=== PATIENT | female | born 1985 | race Two or more races ===

== ENCOUNTER 2020-12-20 10:30 | Inpatient (IN) | payer OTHER ==
[~2020-12-20] VITALS: Ht 152.4 cm; Wt 3.2 kg
[2020-12-20] MEDS ORDERED: FOLIC A PO (12:46)
[2020-12-20] MEDS ORDERED: OBTREX DHA COM1 EACH PO (12:46)
[2020-12-20] MEDS ORDERED: SYNTHROID175 MCG PO (12:46)
[2020-12-27] MEDS ORDERED: FOLIC ACID0.8 M1 PO (13:24)
== END 2020-12-30 15:03 | disposition home or self-care (01) | DRG 788 ==
LOC: OB/GYN 12-27 07:00 → O/R 12-27 09:58 → OB/GYN 12-27 10:30 → SURG-SUITE 12-27 15:38
PROVIDERS: ADMIT Obstetrics & Gynecology; ATTEND Obstetrics & Gynecology
PROC: 4A1HXFZ Monitoring of Products of Conception, Cardiac Rhythm, External Approach (ICD-10-PCS; 2020-12-27)
PROC: 10D00Z1 Extraction of Products of Conception, Low, Open Approach (ICD-10-PCS; principal; 2020-12-27 07:00)
DX: O34.211 Maternal care for low transverse scar from previous cesarean delivery (principal); O99.284 Endocrine, nutritional and metabolic diseases complicating childbirth; E03.9 Hypothyroidism, unspecified; Z37.0 Single live birth; Z3A.39 39 weeks gestation of pregnancy

== ENCOUNTER 2024-04-26 16:01 | Outpatient (CLI) | payer OTHER ==
[~2024-04-26 16:01] MED LIST: FOLIC A PO; FOLIC ACID0.8 M1 PO; OBTREX DHA COM1 EACH PO; SYNTHROID175 MCG PO
== END 2024-04-26 16:17 | disposition home or self-care (01) ==
LOC: NST 16:01
PROVIDERS: ATTEND Obstetrics & Gynecology Gynecology
DX: Z34.83 Encounter for supervision of other normal pregnancy, third trimester (principal)

== ENCOUNTER 2024-04-29 10:36 | Inpatient (IN) | payer OTHER ==
[~2024-04-29] VITALS: Ht 152.4 cm; Wt 3.6 kg
[~2024-04-29 10:36] MED LIST changes: +GLUMETZA500 MG PO
[2024-04-29 11:14] LABS: PH,URINE 6.5 (5.0-8.0); URINE APPEARANCE Clear; URINE BILIRRUBIN Negative (NEGATIVE); URINE BLOOD Negative; URINE COLOR Yellow; URINE GLUCOSE Negative (NEGATIVE); URINE KETONE Negative (NEGATIVE); URINE LEUKOCYTE Negative; URINE NITRATE Negative; URINE PROTEIN Negative (NEGATIVE); URINE UROBILINOGEN 0.2 E.U./dl
[2024-04-29 11:15] LABS: URINE BACTERIA 1324.1 uL (0.0-1933); URINE EPITHELIAL CELLS 12.4 uL (0.0-38.8); URINE RBC 3.9 uL (0.0-20.8); URINE WBC 21.3 uL (0.0-23.2)
[2024-04-29 11:28] LABS: HEMATOCRIT 36.2 % (36.0-45.00); HEMOGLOBIN 12.4 g/dL (12.0-15.00); MEAN CELL VOLUME 87.1 fL (80.00-100.00); MEAN CORPUSCULAR HGB CONC 34.4 g/dl (32.0-36.0); PLATELET COUNT 238 K/uL (150-450); RED BLOOD COUNT 4.15 M/uL (4.00-6.00); RED CELL DISTRIBUTION WIDTH 13.3 % (11.5-14.5)
[2024-04-29 11:36] LABS: URINE CAST 0.14 uL (0.0-1.40)
[2024-04-29 12:01] LABS: INR 0.95; PARTIAL THROMBOPLASTIN TIME 28.4 SECONDS (22.0-34.0); PROTHROMBIN TIME 10.4 SECONDS (9.0-11.5)
[2024-04-29 12:45] LABS: ALBUMIN 2.6 gm/dL (3.4-5.0); BILIRUBIN TOTAL 0.32 mg/dL (0.3-1.2); CALCIUM 9.2 mg/dL (8.5-10.1); CREATININE SERUM 0.53 mg/dL (0.55-1.02); GFR 129.1; GLOBULINA 3.6 G/DL (2.4-3.5); POTASSIUM 3.87 mEq/L (3.5-5.1); TOTAL PROTEIN 6.2 gm/dL (6.4-8.2)
[2024-05-03] MEDS ORDERED: OXYTOCIN 10 UNITS/ML VIAL ONE (07:21)
[2024-05-03] MEDS ORDERED: ERYTHROMYCIN BASE OPHT 1GM EACH TUBE OP ONE (07:21)
[2024-05-03] MEDS ORDERED: KETOROLAC TROMETHAMINE 30 MG VIAL ONE (09:48)
[2024-05-04 06:24] LABS: HEMATOCRIT 29.5 % (36.0-45.00); HEMOGLOBIN 10.2 g/dL (12.0-15.00); MEAN CELL VOLUME 87.1 fL (80.00-100.00); MEAN CORPUSCULAR HEMOGLOBIN 30.2 pg (27.00-32.0); MEAN CORPUSCULAR HGB CONC 34.7 g/dl (32.0-36.0); PLATELET COUNT 184 K/uL (150-450); RED BLOOD COUNT 3.39 M/uL (4.00-6.00)
[2024-05-04 08:00] VITALS: BP 92/60
[2024-05-04] MEDS ORDERED: LEVOTHYROXINE SODIUM 100 MCG TABLET PO SCH (08:00)
[2024-05-04] MEDS ORDERED: LEVOTHYROXINE SODIUM 125 MCG TABLET PO SCH (08:00)
[2024-05-04] MEDS ORDERED: GABAPENTIN 300 MG CAPSULE PO SCH (12:10)
[2024-05-04] MEDS ORDERED: KETOROLAC TROMETHAMINE 10 MG TABLET PO SCH (12:10)
[2024-05-04] MEDS ORDERED: ACETAMINOPHEN 500 MG GEL..CAP PO SCH (12:11)
[2024-05-04] MEDS ORDERED: SIMETHICONE 125 MG CAPSULE PO SCH (12:11)
[2024-05-04] MEDS ORDERED: OxyCODONE HCL 5 MG TABLET (ROXICODONE) PO PRN (12:15)
[2024-05-04] MEDS ORDERED: LEVOTHYROXINE SODIUM PO STA (12:45)
[2024-05-04 15:37] VITALS: BP 97/68
[2024-05-05 01:18] VITALS: BP 96/58
[2024-05-05 04:26] VITALS: BP 97/59
[2024-05-05] MEDS ORDERED: LEVOTHYROXINE SODIUM PO SCH (06:00)
[2024-05-05 09:11] VITALS: BP 94/61
== END 2024-05-05 15:46 | DRG 788 ==
LOC: LDR 05-03 06:21 → O/R 05-03 08:27 → OB/GYN 05-03 08:56
PROVIDERS: Obstetrics & Gynecology; ADMIT Obstetrics & Gynecology Gynecology; ATTEND Obstetrics & Gynecology Gynecology
PROC: 4A1HXCZ Monitoring of Products of Conception, Cardiac Rate, External Approach (ICD-10-PCS; 2024-05-03)
PROC: 10D00Z1 Extraction of Products of Conception, Low, Open Approach (ICD-10-PCS; principal; 2024-05-03 07:00)
DX: O34.211 Maternal care for low transverse scar from previous cesarean delivery (principal); Z3A.38 38 weeks gestation of pregnancy; Z37.0 Single live birth; Z20.822 Contact with and (suspected) exposure to COVID-19